=== PATIENT | female | born 1975 | race Two or more races ===

== ENCOUNTER 2021-06-04 18:49 | Emergency (ER) | payer OTHER ==
[~2021-06-04] VITALS: Ht 162.6 cm; Wt 94.3 kg
[2021-06-04] MEDS ORDERED: FORTAMET500 MG PO (19:12)
[2021-06-04] MEDS ORDERED: LEVOTHYROXINE25 MCG PO (19:12)
== END 2021-06-04 21:03 | disposition home or self-care (01) ==
LOC: ER 18:49
DX: R51.9 Headache, unspecified (principal); Z03.818 Encounter for observation for suspected exposure to other biological agents ruled out

== ENCOUNTER 2021-10-07 22:08 | Emergency (ER) | payer OTHER ==
[~2021-10-07] VITALS: Ht 162.6 cm; Wt 87.5 kg
[~2021-10-07 22:08] MED LIST: FORTAMET500 MG PO; LEVOTHYROXINE25 MCG PO
[2021-10-08] MEDS ORDERED: ZOFRAN4 MG PO (04:41)
[2021-10-08] MEDS ORDERED: INTESTINEX680 M1 PO (04:41)
== END 2021-10-08 04:30 | disposition home or self-care (01) ==
LOC: ER 22:08
DX: K52.89 Other specified noninfective gastroenteritis and colitis (principal); Z20.822 Contact with and (suspected) exposure to COVID-19

== ENCOUNTER → 2021-10-21 | Emergency (ER) | payer OTHER ==
[~2021-10-21] VITALS: Ht 162.6 cm; Wt 87.5 kg
[~2021-10-21] MED LIST changes: +INTESTINEX680 M1 PO; +ZOFRAN4 MG PO
== END | disposition left against medical advice (07) ==
LOC: ER 18:35
DX: U07.1 COVID-19 (principal); B34.9 Viral infection, unspecified

== ENCOUNTER 2022-05-26 16:06 | Emergency (ER) | payer OTHER | END 2022-05-26 20:34 | disposition home or self-care (01) | LOC: ER 16:06 | DX: M25.512 Pain in left shoulder (principal); M25.511 Pain in right shoulder ==